=== PATIENT | female | born 1990 | race Caucasian/White ===

== ENCOUNTER 2016-06-18 20:57 | Emergency (ER) | payer BC, OTHER ==
[2016-06-18 21:12] VITALS: BP 129/83; RESP 20
[2016-06-18] MEDS ORDERED: SODIUM CHLORIDE 0.9% 1,000 ML IV STA ×2 (22:24)
[2016-06-18] MEDS ORDERED: ACETAMINOPHEN IV (For NPO) 1,000 MG in EMPTY BAG 1 BAG IVPB ONE (22:24)
--- NOTE | 2016-06-18 22:33 | ED ---
General Adult HPI - General Chief complaint: ENT Stated complaint: Poss Step Throat Time Seen by Provider: 06/18/16 22:10 Source: patient, family, RN notes reviewed Mode of arrival: ambulatory Limitations: no limitations - History of Present Illness Initial comments: Chief complaint and history of present illness is a 25-year-old female complaint of sore throat for 2 days. Not been able to eat or drink anything because of enlarged tender tonsils. Chokes on even water. She was at the physician's office today diagnosed with possible strep. Placed on amoxicillin she's taken 2 doses. Minimal no headache no nausea no vomiting no chest pain or shortness of breath no abdominal pain. - Related Data Home Medications Medication Instructions Recorded Confirmed Pnv with Ca,No.72/Iron/FA 1 tab PO DAILY 07/26/15 06/18/16 [ Plus Tablet] Amoxicillin 875 mg PO Q12HR 06/18/16 06/18/16 Previous Rx's Medication Instructions Recorded Azithromycin [Zithromax Z-pack] 250 mg PO DIRECTED #6 tab 06/18/16 predniSONE 20 mg PO DAILY #3 tab 06/18/16 Allergies Allergy/AdvReac Type Severity Reaction Status Date / Time No Known Allergies Allergy Verified 06/18/16 22:12 Review of Systems ROS Statement: Those systems with pertinent positive or pertinent negative responses have been documented in the HPI. Review of systems. No visual acuity changes no headache she does have a sore throat difficulty swallowing unable to even keep water down. Tender right anterior cervical lymphadenopathy. No meningeal irritation. No complaint of shortness of breath. No abdominal pain no skin rashes. All systems are reviewed. Past medical problems visitations are up-to-date. Surgeries none. No chronic medical problems. Family history grandmother had breast cancer mother and father have hypertension and type 2 diabetes. Patient denies ALLERGIES nonsmoker nondrinker. Current medications amoxicillin 2 doses only. ROS Other: All systems not noted in ROS Statement are negative. Past Medical History Past Medical History: No Reported History History of Any Multi-Drug Resistant Organisms: None Reported Past Surgical History: No Surgical Hx Reported Past Psychological History: No Psychological Hx Reported Smoking Status: Never smoker Past Alcohol Use History: None Reported Past Drug Use History: None Reported General Exam - General Exam Comments Initial Comments: General: The patient is awake and alert, complaining of feeling dry difficulty swallowing. Complains of sore throat. Vital signs shows temperature 102.2. Pulse elevated 123 over story rate 20 pulse ox 96% room air blood pressure 129/ 83. Eye: Pupils are equal, round and reactive to light, extra-ocular movements are intact ; there is normal conjunctiva bilaterally. No signs of icterus. Ears, nose, mouth and throat: Enlarged tender tonsils with exudate. Neck: No stiff neck or meningeal irritation. She does have tender enlarged right anterior cervical lymph node. Cardiovascular: Tachycardic heart rate 123. No murmur, rub or gallop is appreciated. Respiratory: Lungs are clear to auscultation, respirations are non-labored, breath sounds are equal. No wheezes, stridor, rales, or rhonchi. Gastrointestinal: Soft, non-distended, non-tender abdomen without masses or organomegaly noted. There is no rebound or guarding present. No CVA tenderness. Bowel sounds are unremarkable. Back: There is no tenderness to palpation in the midline. There is no obvious deformity. No rashes complained of. Musculoskeletal: Normal ROM, no tenderness, There is no pedal edema. There is no calf tenderness or swelling. Sensation intact. Neurological: No neuro deficits. Ambulating without difficulty Skin: Skin is warm and dry and no rashes or lesions are noted. Limitations: no limitations Course Vital Signs 06/18/16 21:08 Temperature 102.2 F H Pulse Rate 123 H Respiratory 20 Rate Blood Pressure 129/83 O2 Sat by Pulse 96 Oximetry Medical Decision Making - Medical Decision Making Medical decision making; patient's white count 7.8 hemoglobin 13.9 hematocrit of 42. The patient's BUN is 10 creatinine 0.7 with a GFR greater than 60. Potassium 4.5 and a glucose low at 65. The patient is receiving IV fluids at this time. Patient's mono and strep are negative. The patient's only had this sore throat for one or 2 days. Monospot is negative though the possibility of returning positive and 5-10 days was discussed with the patient. The patient will be given methylprednisolone 125 IV here. Advised to take methylprednisolone 30 mg for the next 2 days. During this time she will be pumping and dumping breastmilk and the child will be given bottle of formula milk which they have at home. The patient was told to stop the amoxicillin should be placed on a Z-Allen for possibility of a bacterial superinfection. Advised to use liquid ibuprofen for pain and fever. Advised to follow-up with family physician return emergency room as needed. - Lab Data Result diagrams: 06/18/16 22:50 06/18/16 22:50 Lab Results 06/18/16 06/18/16 06/18/16 Range/Units 22:50 22:50 22:50 WBC 7.8 (3.8-10.6) k/uL RBC 4.48 (3.80-5.40) m/uL Hgb 13.9 (11.4-16.0) gm/dL Hct 42.5 (34.0-46.0) % MCV 94.8 (80.0-100.0) fL MCH 31.1 (25.0-35.0) pg MCHC 32.8 (31.0-37.0) g/dL RDW 11.8 (11.5-15.5) % Plt Count 249 (150-450) k/uL Neutrophils % (Manual) 69.0 % Band Neutrophils % 1.0 % Lymphocytes % (Manual) 24.0 % Monocytes % (Manual) 6.0 % Neutrophils # (Manual) 5.5 (1.3-7.7) k/uL Lymphocytes # (Manual) 1.9 (1.0-4.8) k/uL Monocytes # (Manual) 0.5 (0-1.0) k/uL Nucleated RBCs 0 (0-0) /100 WBC Manual Slide Review Performed Sodium 143 (137-145) mmol/L Potassium 4.5 (3.5-5.1) mmol/L Chloride 105 (98-107) mmol/L Carbon Dioxide 18 L (22-30) mmol/L Anion Gap 20 mmol/L BUN 10 (7-17) mg/dL Creatinine 0.70 (0.52-1.04) mg/dL Est GFR (MDRD) Af Amer >60 (>60 ml/min/1.73 sqM) Est GFR (MDRD) Non-Af >60 (>60 ml/min/1.73 sqM) Glucose 65 L (74-99) mg/dL Calcium 9.1 (8.4-10.2) mg/dL Total Bilirubin 0.6 (0.2-1.3) mg/dL AST 22 (14-36) U/L ALT 40 (9-52) U/L Alkaline Phosphatase 106 (38-126) U/L Total Protein 7.5 (6.3-8.2) g/dL Albumin 4.2 (3.5-5.0) g/dL Heterophile Antibody Negative (Negative) Group A Strep Rapid (Negative) 06/18/16 Range/Units 22:50 WBC (3.8-10.6) k/uL RBC (3.80-5.40) m/uL Hgb (11.4-16.0) gm/dL Hct (34.0-46.0) % MCV (80.0-100.0) fL MCH (25.0-35.0) pg MCHC (31.0-37.0) g/dL RDW (11.5-15.5) % Plt Count (150-450) k/uL Neutrophils % (Manual) % Band Neutrophils % % Lymphocytes % (Manual) % Monocytes % (Manual) % Neutrophils # (Manual) (1.3-7.7) k/uL Lymphocytes # (Manual) (1.0-4.8) k/uL Monocytes # (Manual) (0-1.0) k/uL Nucleated RBCs (0-0) /100 WBC Manual Slide Review Sodium (137-145) mmol/L Potassium (3.5-5.1) mmol/L Chloride (98-107) mmol/L Carbon Dioxide (22-30) mmol/L Anion Gap mmol/L BUN (7-17) mg/dL Creatinine (0.52-1.04) mg/dL Est GFR (MDRD) Af Amer (>60 ml/min/1.73 sqM) Est GFR (MDRD) Non-Af (>60 ml/min/1.73 sqM) Glucose (74-99) mg/dL Calcium (8.4-10.2) mg/dL Total Bilirubin (0.2-1.3) mg/dL AST (14-36) U/L ALT (9-52) U/L Alkaline Phosphatase (38-126) U/L Total Protein (6.3-8.2) g/dL Albumin (3.5-5.0) g/dL Heterophile Antibody (Negative) Group A Strep Rapid Negative (Negative) Disposition Clinical Impression: Exudative tonsillitis Disposition: HOME SELF-CARE Condition: Fair Instructions: Tonsillitis (ED), Mononucleosis (ED) Additional Instructions: Increase fluid intake. Use liquid Motrin suspension for pain and fever. Take Z -Allen for 5 days crushed up pills if necessary to swallow. Take prednisone 20 mg daily for at least 2 days. Follow-up with your family physician Prescriptions: Azithromycin [Zithromax Z-pack] 250 mg PO DIRECTED #6 tab predniSONE 20 mg PO DAILY #3 tab Time of Disposition: 23:51
[2016-06-18 23:02] LABS: Aty Lym Flag Slight; CH 31.6; CHCM 33.4; HCT 42.5 % (34.0-46.0); HDW 2.58; HGB 13.9 gm/dL (11.4-16.0); MCH 31.1 pg (25.0-35.0); MCHC 32.8 g/dL (31.0-37.0); MCV 94.8 fL (80.0-100.0); Mean Platelet Volume 6.1; RBC 4.48 m/uL (3.80-5.40); RDW 11.8 % (11.5-15.5); WBC 7.8 k/uL (3.8-10.6); WBC (Perox) 7.38
[2016-06-18 23:20] LABS: ALT 40 U/L (9-52); AST 22 U/L (14-36); Alkaline Phosphatase 106 U/L (38-126); Anion Gap 20 mmol/L; Blood Urea Nitrogen 10 mg/dL (7-17); Calcium 9.1 mg/dL (8.4-10.2); Carbon Dioxide 18 mmol/L (22-30); Chloride 105 mmol/L (98-107); Glucose 65 mg/dL (74-99); Non-African American GFR(MDRD) >60 (>60 ml/min/1.73 sqM); Potassium 4.5 mmol/L (3.5-5.1); Sodium 143 mmol/L (137-145); Total Bilirubin 0.6 mg/dL (0.2-1.3); Total Protein 7.5 g/dL (6.3-8.2)
[2016-06-18 23:21] LABS: Add Differential Manual Differential
[2016-06-18 23:23] LABS: Manual Review Performed; Nucleated Red Blood Cells 0 /100 WBC (0-0); Total Cells Counted 100
[2016-06-18] MEDS ORDERED: methylPREDNISolone SOD SUCCI 125 MG/2 ML VIAL IV STA (23:44)
[2016-06-18 23:54] VITALS: PULSE 70; TEMP 98.7
== END 2016-06-19 00:31 | disposition home or self-care (01) ==
LOC: EC 20:57
DX: J03.90 Acute tonsillitis, unspecified (principal)
CPT/HCPCS: 99283; 96365; 96375; 36415; 80053; 85025; 86308; 87081; 87430; J2930; J0131